=== PATIENT | female | born 1995 | race African-American/Black ===

== ENCOUNTER 2019-10-11 01:18 | Emergency (ER) | payer OTHER ==
[~2019-10-11] VITALS: Ht 167.6 cm; Wt 117.9 kg
[2019-10-11] MEDS ORDERED: NEXIUM20 M1 PO (01:29)
[2019-10-11] MEDS ORDERED: HYDROCHLOROTHIA25 M2 PO (01:30)
[2019-10-11] MEDS ORDERED: LYRICA 75 MG CA75 MG PO (01:31)
[2019-10-11] MEDS ORDERED: VISTARIL 25 MG25 M1 PO (01:31)
[2019-10-11 02:36] LABS: URINE BLOOD NEGATIVE (Negative); URINE CLARITY CLEAR; URINE COLOR YELLOW; URINE GLUCOSE-RANDOM NEGATIVE (Negative); URINE KETONES NEGATIVE (Negative); URINE LEUKOCYTES-REFLEX NEGATIVE (Negative); URINE NITRITE-REFLEX NEGATIVE (Negative); URINE PROTEIN NEGATIVE (Negative); URINE SPECIFIC GRAVITY >= 1.030 (1.005-1.030); URINE UROBILINOGEN 0.2 E.U./dl (0.2-1.0)
[2019-10-11 02:40] LABS: URINE BILIRUBIN 1+ (Negative)
[2019-10-11 02:42] LABS: ICTOTEST (BILI CONFIRMATORY) Negative (Negative)
[2019-10-11 03:19] LABS: ABSOLUTE BASOPHILS 0.1 thou/uL (0.0-0.2); ABSOLUTE EOSINOPHILS 0.1 thou/uL (0.0-0.7); ABSOLUTE LYMPHOCYTES 2.5 thou/uL (0.8-5.3); ABSOLUTE MONOCYTES 0.6 thou/uL (0.0-1.2); ABSOLUTE NEUTROPHILS 7.9 thou/uL (1.6-8.1); BASOPHILS 0.6 %; HEMATOCRIT 34.5 % (37.0-47.0); HEMOGLOBIN 11.3 gm/dL (12.0-15.0); LYMPHOCYTES 22.6 %; MCH 25.9 pg (26.0-34.0); MCHC 32.7 g/dL (28.0-37.0); MCV 79.4 fL (80.0-100.0); MPV 8.8 fl. (7.2-11.1); NUCLEATED RBCS 0 /100WBC; PLATELET COUNT* 475 thou/uL (150-400); POLYS 70.8 %; RBC 4.34 mil/uL (4.20-5.00); RDW-CV 13.2 % (10.5-14.5); WBC 11.1 thou/uL (4.0-11.0)
[2019-10-11 03:40] LABS: CALCIUM 8.3 mg/dL (8.5-10.1); CREATININE 0.8 mg/dL (0.6-1.3); POTASSIUM 3.2 mmol/L (3.5-5.1)
[2019-10-11] MEDS ORDERED: ZOFRAN ODT4 MG PO (05:30)
[2019-10-11 05:39] VITALS: BP 132/78
== END 2019-10-11 05:39 | disposition home or self-care (01) ==
LOC: M.ERS 01:18
PROVIDERS: Emergency Medicine
DX: R10.32 Left lower quadrant pain (principal); I10 Essential (primary) hypertension; M79.7 Fibromyalgia; Z88.1 Allergy status to other antibiotic agents